=== PATIENT | male | born 1940 | race Caucasian/White ===

== ENCOUNTER 2017-06-22 20:30 | Emergency (ER) | payer OTHER ==
[~2017-06-22] VITALS: Ht 177.8 cm; Wt 91.3 kg
[~2017-06-22 20:30] MED LIST: AMLODIPINE BES2.5 MG PO; AMOXICILLIN500 M1 PO; ASCORBIC ACID500 M3 PO; ASPIRIN325 MG PO; ATORVASTATIN CA20 MG PO; ATORVASTATIN CA40 MG PO; DOXAZOSIN MESYLA4 MG PO; HYDROCHLOROTHIA25 MG PO; IPRATROPIUM BRO15 ML BOTH NARES; LEVOCETIRIZINE D5 MG PO; LIPITOR40 MG PO; LISINOPRIL40 MG PO; LO-DOSE ASPIRIN81 M1 PO; METFORMIN HCL500 M1 PO; MUCINEX DM ER1 EACH PO; OCEAN NASAL 0.645 ML BOTH NARES; OMEGA-3 KRILL1 EAC4 PO; OMEPRAZOLE40 M1 PO; PERCOCET 5/31 TABLET PO; PROBIOTIC1 EAC1 PO; SF56 GM DT; SINGULAIR10 MG PO; SODIUM FLUORID DT; TYLENOL EXTRA500 MG PO; VITAMIN D1000 INTUN PO; VITAMIN D31000 UNI2 PO; XALATAN2.5 ML BOTH EYES; ZOFRAN4 MG PO
[2017-06-22] MEDS ORDERED: GABAPENTIN100 MG PO (22:01)
[2017-06-22] MEDS ORDERED: LIDOPAC1 EACH TP (22:02)
[2017-06-22] MEDS ORDERED: TRAMADOL HCL50 MG PO (22:02)
[2017-06-22] MEDS ORDERED: AMLODIPINE BES2.5 MG PO (22:02)
[2017-06-22 22:38] VITALS: BP 00/0
[2017-06-23] MEDS ORDERED: XARELTO1 EACH PO (00:09)
[2017-06-23] MEDS ORDERED: PERCOCET 5/31 TABLET PO (00:10)
[2017-06-23 00:20] LABS: HEMATOCRIT 37.3 % (38.0-50.0); MCV 88.2 FL (86-99); MEAN PLAT.VOLUME 9.1 uM^3 (9.0-12.4); PLATELET COUNT 221 K/uL (156-360); RBC DIS.WIDTH-CV 12.9 % (11.8-14.6); RBC DIS.WIDTH-SD 41.6 % (39-53); RED BLOOD COUNT 4.23 M/uL (4.00-5.50); WHITE BLOOD COUNT 13.4 K/uL (4.1-10.2)
[2017-06-23 00:29] LABS: PROTHROMBIN TIME 11.3 SEC (10.2-12.9)
[2017-06-23 00:35] LABS: CHLORIDE 92 mEq/L (99-109); POTASSIUM 4.2 mEq/L (3.7-5.4); SODIUM 127 mEq/L (136-147)
[2017-06-23 00:37] LABS: GLUCOSE 127 mg/dL (70-99)
[2017-06-23 00:38] LABS: ANION GAP 11 MEQ/L (2-14)
[2017-06-23 00:40] LABS: GFR ESTIMATE (CALCULATED) > 59 mL/min/
[2017-06-23 00:41] LABS: UREA NITROGEN (BUN) 30 mg/dL (9-23)
== END 2017-06-23 02:25 | disposition home or self-care (01) ==
LOC: EME 20:30
PROVIDERS: Physician Assistant
DX: I82.412 Acute embolism and thrombosis of left femoral vein (principal); B02.9 Zoster without complications; E11.9 Type 2 diabetes mellitus without complications; I10 Essential (primary) hypertension; Z79.82 Long term (current) use of aspirin; Z79.84 Long term (current) use of oral hypoglycemic drugs; Z87.891 Personal history of nicotine dependence
CPT/HCPCS: 73564; 80048; 85027; 85610; 85730; 93971; 99281; 99284; J3010

== ENCOUNTER 2017-10-22 23:28 | Inpatient (IN) | payer OTHER ==
[~2017-10-22] VITALS: Ht 177.8 cm; Wt 91.6 kg
[~2017-10-22 23:28] MED LIST changes: +DENTAGEL56 GM DT; +GABAPENTIN100 MG PO; +LIDOPAC1 EACH TP; -SF56 GM DT; +TRAMADOL HCL50 MG PO; +XARELTO1 EACH PO
[2017-10-23 00:21] LABS: HEMATOCRIT 36.3 % (38.0-50.0); HEMOGLOBIN 12.3 G/DL (12.5-16.6); MCH 29.9 PG (29.0-34.0); MCHC 33.9 G/DL (30.0-36.0); MCV 88.3 FL (86-99); PLATELET COUNT 198 K/uL (156-360); RBC DIS.WIDTH-CV 13.4 % (11.8-14.6); RBC DIS.WIDTH-SD 43.6 % (39-53); RED BLOOD COUNT 4.11 M/uL (4.00-5.50); WHITE BLOOD COUNT 6.4 K/uL (4.1-10.2)
[2017-10-23 00:30] LABS: ALBUMIN 3.9 g/dL (3.2-4.8); CHLORIDE 107 mEq/L (99-109); INTER. NORMALIZED RATIO 1.2; SODIUM 140 mEq/L (136-147)
[2017-10-23 00:32] LABS: GLUCOSE 138 mg/dL (70-99); PTT 40.3 SEC (25-37); TOTAL PROTEIN 6.3 g/dL (6.4-8.3)
[2017-10-23 00:34] LABS: TOTAL BILIRUBIN 0.2 mg/dL (0.0-1.0)
[2017-10-23 00:36] LABS: ALKALINE PHOSPHATASE 82 IU/L (3-129); GFR ESTIMATE (CALCULATED) > 59 mL/min/ (58.99-99999)
[2017-10-23 00:37] LABS: UREA NITROGEN (BUN) 20 mg/dL (9-23)
[2017-10-23 00:38] LABS: AST (GOT) 22 IU/L (2-34)
[2017-10-23 00:39] LABS: ALT (GPT) 33 IU/L (3-49)
[2017-10-23 00:42] LABS: TROP-I INTERPRETATION NEGATIVE; TROPONIN-I < 0.01 ng/mL (0.0-0.30)
[2017-10-23] MEDS ORDERED: XARELTO20 MG PO (01:16)
[2017-10-23] MEDS ORDERED: SYNTHROID50 MCG PO (01:19)
[2017-10-23] MEDS ORDERED: MUCINEX1200 MG PO (01:19)
[2017-10-23] MEDS ORDERED: MIRALAX17 GM PO (01:19)
[2017-10-23] MEDS ORDERED: FIBER0.4 GM PO (01:20)
[2017-10-23 02:10] LABS: APPEARANCE CLEAR ((CLEAR)); BILIRUBIN NEGATIVE; BLOOD NEGATIVE; COLOR YELLOW ((YELLOW)); GLUCOSE (STRIP) NEGATIVE; KETONES NEGATIVE; LEUKOCYTES NEGATIVE; NITRITE NEGATIVE; PROTEIN (STRIP) NEGATIVE; SPECIFIC GRAVITY 1.014 (1.000-1.030); UCUL ADDED? NO; UROBILINOGEN 0.2 MG/DL (0.2-1.0)
[2017-10-23 03:14] LABS: HDL CHOLESTEROL 36 MG/DL (Desirable>=40); LDL CHOLESTEROL 142 mg/dL (Desirable<100); NON-HDL CHOLESTEROL 189 mg/dL (Desirable<160); TOTAL CHOLESTEROL 225 mg/dL (Desirable<200); TRIGLYCERIDES 233 MG/DL (Normal: <150)
[2017-10-23 06:24] LABS: HEMATOCRIT 37.9 % (38.0-50.0); HEMOGLOBIN 12.9 G/DL (12.5-16.6); MCH 29.7 PG (29.0-34.0); MCV 87.3 FL (86-99); PLATELET COUNT 198 K/uL (156-360); RBC DIS.WIDTH-CV 13.3 % (11.8-14.6); RBC DIS.WIDTH-SD 42.5 % (39-53); RED BLOOD COUNT 4.34 M/uL (4.00-5.50); WHITE BLOOD COUNT 5.9 K/uL (4.1-10.2)
[2017-10-23 06:36] LABS: CHLORIDE 106 mEq/L (99-109); POTASSIUM 4.4 mEq/L (3.7-5.4); SODIUM 139 mEq/L (136-147)
[2017-10-23 06:37] LABS: GLUCOSE 123 mg/dL (70-99)
[2017-10-23 06:41] LABS: CREATININE 0.9 mg/dL (0.6-1.3); GFR ESTIMATE (CALCULATED) > 59 mL/min/ (58.99-99999)
[2017-10-23 06:42] LABS: UREA NITROGEN (BUN) 17 mg/dL (9-23)
[2017-10-23 09:12] LABS: HEMOGLOBIN A1c (GLYCOHEMOGLOB) 6.4 % (Below 5.7)
[2017-10-23 13:58] VITALS: BP 181/91
[2017-10-23 16:56] VITALS: BP 175/104
[2017-10-23 19:25] VITALS: BP 177/105
[2017-10-23 23:34] VITALS: BP 169/94
[2017-10-24 04:05] VITALS: BP 169/90
[2017-10-24 07:28] VITALS: BP 176/81
[2017-10-24 09:34] LABS: HEMOGLOBIN 14.2 G/DL (12.5-16.6); MCH 29.2 PG (29.0-34.0); MCV 88.5 FL (86-99); PLATELET COUNT 219 K/uL (156-360); RBC DIS.WIDTH-CV 13.4 % (11.8-14.6); RBC DIS.WIDTH-SD 43.8 % (39-53); RED BLOOD COUNT 4.86 M/uL (4.00-5.50); WHITE BLOOD COUNT 5.8 K/uL (4.1-10.2)
[2017-10-24 10:15] LABS: CHLORIDE 99 MEQ/L (99-109); GFR ESTIMATE (CALCULATED) > 59 mL/min/ (58.99-99999); GLUCOSE 133 mg/dL (70-99); POTASSIUM 4.4 MEQ/L (3.7-5.4); SODIUM 137 MEQ/L (136-147); UREA NITROGEN (BUN) 17 mg/dL (9-23)
[2017-10-24 11:32] VITALS: BP 148/70
[2017-10-24 15:51] VITALS: BP 134/77
[2017-10-24 19:09] VITALS: BP 140/71
[2017-10-24 23:35] VITALS: BP 185/90
[2017-10-25 04:31] VITALS: BP 133/70
[2017-10-25 07:58] VITALS: BP 138/79
[2017-10-25 11:24] VITALS: BP 103/59
[2017-10-25] MEDS ORDERED: ATORVASTATIN CA40 MG PO (11:33)
[2017-10-25] MEDS ORDERED: METFORMIN HCL500 MG PO (11:33)
[2017-10-25] MEDS ORDERED: AMLODIPINE BESY10 MG PO (11:33)
== END 2017-10-25 15:01 | disposition home or self-care (01) | DRG 65 ==
LOC: EME 23:28 → 5SOUTH 10-23 01:55 → EDOF 10-23 01:55 → ENRESERV 10-23 01:57 → 5SOUTH 10-23 13:37 → ENPENDDIS 10-25 11:46 → 5SOUTH 10-25 15:01
PROVIDERS: Emergency Medicine; Hospitalist; Internal Medicine
DX: I63.8 Other cerebral infarction (principal); G81.94 Hemiplegia, unspecified affecting left nondominant side; E11.9 Type 2 diabetes mellitus without complications; I10 Essential (primary) hypertension; E78.5 Hyperlipidemia, unspecified; K22.70 Barrett's esophagus without dysplasia; D35.2 Benign neoplasm of pituitary gland; I44.0 Atrioventricular block, first degree; R79.89 Other specified abnormal findings of blood chemistry; Z86.718 Personal history of other venous thrombosis and embolism; Z79.01 Long term (current) use of anticoagulants; Z79.82 Long term (current) use of aspirin; Z79.84 Long term (current) use of oral hypoglycemic drugs; Z85.46 Personal history of malignant neoplasm of prostate; Z87.891 Personal history of nicotine dependence; Z82.49 Family history of ischemic heart disease and other diseases of the circulatory system; Z82.3 Family history of stroke; Z82.0 Family history of epilepsy and other diseases of the nervous system; Z80.42 Family history of malignant neoplasm of prostate
CPT/HCPCS: 70450; 70551; 80048; 80048 91; 80053; 80061; 81003; 83036; 84484; 85027; 85610; 85730; 93005; 99281; 99285